=== PATIENT | female | born 1955 | race Caucasian/White ===

== ENCOUNTER 2025-02-09 07:43 | Inpatient (IN) | payer MEDICARE, OTHER ==
[~2025-02-09 07:43] MED LIST: ACET-2605 PO; NAPR250T PO; PANT20TA2 PO; SUMA100T PO
[2025-02-09] MEDS ORDERED: SUMATRIPTAN SUCCINATE 100 MG TABLET PO ONE (08:57)
[2025-02-09] MEDS ORDERED: VANCOMYCIN 1 GM VIAL ONE (10:21)
[2025-02-09] MEDS ORDERED: dexaMETHasone SOD PHOSPHATE 2 ML ONE (10:21)
[2025-02-09] MEDS ORDERED: LIDOCAINE 2%-EPI 1:100,000 30 ML VIAL ONE (10:21)
[2025-02-09] MEDS ORDERED: OXYMETAZOLINE HCL NASAL SPRAY 30 ML BOTTLE NS ONE (10:21)
[2025-02-09] MEDS ORDERED: FENTANYL PF 100MCG/2ML AMPUL ONE (10:39)
[2025-02-09] MEDS ORDERED: SUCCINYLCHOLINE CHLORIDE 20 MG/ML VIAL ONE (10:40)
[2025-02-09] MEDS ORDERED: MIDAZOLAM HCL 2 MG/2ML VIAL ONE (10:40)
[2025-02-09] MEDS ORDERED: SEVOFLURANE 250 ML BOTTLE IH ONE (11:00)
[2025-02-09] MEDS ORDERED: MAGNESIUM HYDROXIDE 30 ML UDC PO PRN (13:30)
[2025-02-09] MEDS ORDERED: MAG HYDROX/AL HYDROX/SIMETH 30 ML UDC PO PRN (13:30)
[2025-02-09] MEDS ORDERED: IV NS 0.9% 500 ML IV SCH (13:30)
[2025-02-09] MEDS ORDERED: Z GUARD REMEDY 4 OZ OINT TP PRN (13:30)
[2025-02-09] MEDS ORDERED: ONDANSETRON HCL/PF 4 MG/2 ML VIAL IVP PRN (13:30)
[2025-02-09] MEDS: IV NS 0.9% 1,000 ML IV SCH (13:39)
[2025-02-09] MEDS: ACETAMINOPHEN 325 MG TABLET PO PRN (13:41)
[2025-02-09] MEDS ORDERED: BUPR1FIL7 SL (14:05)
[2025-02-09] MEDS ORDERED: AMOX1TAB16 PO (14:05)
[2025-02-09] MEDS ORDERED: LEVO50TA8 PO (14:05)
[2025-02-09] MEDS ORDERED: OMEP40CA21 PO (14:05)
[2025-02-09] MEDS ORDERED: ONDA8TAB13 PO (14:05)
[2025-02-09] MEDS ORDERED: ONDANSETRON HCL/PF 4 MG/2 ML VIAL IV PRN (14:30)
[2025-02-09] MEDS: HYDROMORPHONE 1 MG/1 ML DISP.SYRIN IV PRN (14:59)
[2025-02-09 16:00] VITALS: BP 132/69; TEMP 98.6; O2SAT 96
[2025-02-09 17:54] VITALS: BP 132/69; TEMP 98.6
[2025-02-09] MEDS ORDERED: PANTOPRAZOLE 40 MG TABLET.DR PO PRN (18:30)
[2025-02-09] MEDS ORDERED: SUMATRIPTAN SUCCINATE 100 MG TABLET PO PRN (18:30)
[2025-02-09] MEDS ORDERED: NALOXONE HCL SL SCH (18:30)
[2025-02-09] MEDS ORDERED: [UNRECOGNIZED DRUG - OTHER] SL SCH (18:30)
[2025-02-09] MEDS ORDERED: BUPRENORPHINE HCL SL SCH (18:30)
[2025-02-09] MEDS: VANCOMYCIN HCL 1 GM in IV D5W 250 ML IV SCH (22:10)
[2025-02-09] MEDS ORDERED: TRAZODONE 50 MG TABLET PO SCH (22:30)
[2025-02-09 23:55] VITALS: BP 130/73; TEMP 98.1; O2SAT 97
[2025-02-10] MEDS: LEVOTHYROXINE SODIUM 50 MCG TABLET PO SCH (09:13)
== END 2025-02-10 12:30 | disposition home or self-care (01) | DRG 142 ==
LOC: DS 07:43 → MED 12:55
PROVIDERS: ADMIT Internal Medicine; ATTEND Internal Medicine
PROC: 0N5R0ZZ Destruction of Maxilla, Open Approach (ICD-10-PCS; 2025-02-09)
PROC: 0NUR07Z Supplement Maxilla with Autologous Tissue Substitute, Open Approach (ICD-10-PCS; 2025-02-09)
PROC: 0NUR0JZ Supplement Maxilla with Synthetic Substitute, Open Approach (ICD-10-PCS; 2025-02-09)
PROC: 0NSR04Z Reposition Maxilla with Internal Fixation Device, Open Approach (ICD-10-PCS; principal; 2025-02-09 10:15)
DX: S02.411B LeFort I fracture, initial encounter for open fracture (principal); X58.XXXA Exposure to other specified factors, initial encounter; Y93.9 Activity, unspecified; M27.2 Inflammatory conditions of jaws; E03.9 Hypothyroidism, unspecified; G89.29 Other chronic pain; G43.909 Migraine, unspecified, not intractable, without status migrainosus; D16.4 Benign neoplasm of bones of skull and face; M27.49 Other cysts of jaw; T18.0XXA Foreign body in mouth, initial encounter; J32.0 Chronic maxillary sinusitis; I34.0 Nonrheumatic mitral (valve) insufficiency; Y92.009 Unspecified place in unspecified non-institutional (private) residence as the place of occurrence of the external cause
CPT/HCPCS: A4223; A4338; C1713; C1781; G0378; J0330; J1100; J1171; J1885; J2250; J2405; J2704; J2765; J3010; J3370; J3490; J7030; J7042; J7060